=== PATIENT | male | born 1955 | race Two or more races ===

== ENCOUNTER 2017-02-04 12:53 | Outpatient (CLI) | payer MEDICARE, OTHER ==
[~2017-02-04 12:53] MED LIST: HYDROCHLOROTHIA25 MG ORAL; NORCO 10/3251 EA ORAL; OMEPRAZOLE40 M1 ORAL; PROSCAR5 MG ORAL; TAMSULOSIN HCL0.4 MG ORAL; ZOLPIDEM TARTRA10 MG ORAL
[2017-02-04 13:15] VITALS: BP 124/80
[2017-02-04] MEDS ORDERED: POTASSIUM CITR10 ME1 PO (13:22)
[2017-02-04] MEDS ORDERED: GLEEVEC100 MG ORAL (13:22)
--- NOTE | 2017-02-04 13:53 | GI Progress Note ---
Assessment/Plan Problems: (1) Colonic polyp ICD Codes: K63.5 - Polyp of colon SNOMED: 47008110 (2) Colon cancer ICD Codes: C18.9 - Malignant neoplasm of colon, unspecified SNOMED: 490487349 (3) abd GIST Status: stable, unchanged Status Narrative Seen with Dr. Starr. Assessment/Plan s/p colonoscopy >> colonic polyp 4cm in R cecum >> pathology, invasive adenocarcinoma colovesical fistula discussed POC with Dr. Gonsales ordered CT @ [facility] f/u with urology RTC after imaging study Subjective Subjective abdominal pain >> lower at pelvis moves around to back dysuria weight loss 6 lbs Objective Last 24 Hour Vital Signs Date Time Temp Pulse Resp B/P Pulse Ox O2 Delivery O2 Flow Rate FiO2 02/04/17 13:15 97.4 82 16 124/80 95 General Appearance: no apparent distress, alert Cardiovascular: normal rate Respiratory/Chest: normal breath sounds, no respiratory distress Abdominal Exam: normal bowel sounds, non tender, soft Extremities: normal range of motion Objective DATE OF OPERATION: 12/10/2015 PREOPERATIVE DIAGNOSES: 1. Gastrointestinal stromal tumor in the greater curvature of the stomach. 2. Adenocarcinoma of the right colon. POSTOPERATIVE DIAGNOSES: 1. Gastrointestinal stromal tumor of the stomach, stage IV. 2. Right colon adenocarcinoma. 3. Carcinomatosis PROCEDURES: 1. Diagnostic laparoscopy. 2. Laparoscopic peritoneal biopsies. SURGEON: Ajith Yi M.D. Endoscopy Procedure Note Indication for Procedure: colon polyp x 1 (4cm in cecum) Procedures Performed: colonoscopy Operative Findings/Diagnosis: same ROBERT STARR - Nov 23, 2015 09:31 Omayra Childers N.P. Feb 04, 2017 13:53
== END 2017-02-04 13:45 | disposition home or self-care (01) ==
LOC: PAN 12:53
DX: K63.5 Polyp of colon (principal); C18.9 Malignant neoplasm of colon, unspecified
CPT/HCPCS: 99211

== ENCOUNTER 2017-02-19 13:12 | Outpatient (CLI) | payer MEDICARE, OTHER ==
[~2017-02-19 13:12] MED LIST changes: +GLEEVEC100 MG ORAL; +POTASSIUM CITR10 ME1 PO
[2017-02-19 13:31] VITALS: BP 126/71
--- NOTE | 2017-02-19 14:17 | GI Progress Note ---
Assessment/Plan Problems: (1) Diverticulitis ICD Codes: K57.92 - Diverticulitis of intestine, part unspecified, without perforation or abscess without bleeding SNOMED: 196208169 (2) Colon cancer ICD Codes: C18.9 - Malignant neoplasm of colon, unspecified SNOMED: 057398870 (3) abd GIST Status: stable Status Narrative Seen with Dr. Hadley. Assessment/Plan CT AP reviewed >> diverticulitis rx Cipro + Flagyl recommended urology and surgical consult RTC x 1 month Subjective Gastrointestinal/Abdominal: Reports: no symptoms Subjective decrease in appetite Rt scrotum - small nodule Objective Last 24 Hour Vital Signs Date Time Temp Pulse Resp B/P Pulse Ox O2 Delivery O2 Flow Rate FiO2 02/19/17 13:31 97.9 74 16 126/71 General Appearance: no apparent distress, alert Cardiovascular: normal rate Respiratory/Chest: normal breath sounds, no respiratory distress Abdominal Exam: normal bowel sounds, non tender, soft Extremities: normal range of motion Omayra Childers N.P. Feb 19, 2017 14:17
== END 2017-02-19 13:51 | disposition home or self-care (01) ==
LOC: PAN 13:12
DX: K57.92 Diverticulitis of intestine, part unspecified, without perforation or abscess without bleeding (principal); C18.9 Malignant neoplasm of colon, unspecified
CPT/HCPCS: 99211

== ENCOUNTER 2017-03-30 13:08 | Outpatient (CLI) | payer MEDICARE, OTHER ==
--- NOTE | 2017-03-30 14:33 | GI Progress Note ---
Assessment/Plan Problems: (1) Colon cancer ICD Codes: C18.9 - Malignant neoplasm of colon, unspecified SNOMED: 050728919 (2) Diverticulitis ICD Codes: K57.92 - Diverticulitis of intestine, part unspecified, without perforation or abscess without bleeding SNOMED: 900940936 (3) Colonic polyp ICD Codes: K63.5 - Polyp of colon SNOMED: 20270509 Status: stable Status Narrative Seen with Dr. Hadley. Assessment/Plan hx of colon CA diverticulitis, s/p tx EGD/colonoscopy scheduled for 04/15/17. - CLD & [employer] prep instructions given and acknowledged. Subjective Gastrointestinal/Abdominal: Reports: no symptoms Objective T 98 BP 137/71 P 87 Denies weight loss General Appearance: no apparent distress, alert, overweight Cardiovascular: normal rate Respiratory/Chest: normal breath sounds, no respiratory distress Abdominal Exam: normal bowel sounds, non tender, soft Extremities: normal range of motion Omayra Childers N.P. Mar 30, 2017 14:33
== END 2017-03-30 13:45 | disposition home or self-care (01) ==
LOC: PAN 13:08
DX: K57.92 Diverticulitis of intestine, part unspecified, without perforation or abscess without bleeding (principal); K63.5 Polyp of colon; C18.9 Malignant neoplasm of colon, unspecified; E66.3 Overweight
CPT/HCPCS: 99211

== ENCOUNTER 2017-04-15 07:51 | Day surgery (SDC) | payer MEDICARE, MEDICAID ==
[2017-04-15] VITALS (10 sets, daily range): BP systolic 135–147; BP diastolic 70–83
[~2017-04-15] VITALS: Ht 162.6 cm; Wt 78.5 kg
[2017-04-15] MEDS ORDERED: DOCOLACE PO (08:30)
[2017-04-15] MEDS ORDERED: HYZAAR 100-251 EACH ORAL (08:31)
--- NOTE | 2017-04-15 08:48 | Pre-Procedure Note/Attestation ---
Pre-Procedure Note/Attestation Complete Prior to Procedure Planned Procedure: not applicable Procedure Narrative: esophagogastroduodenoscopy and colonoscopy Indications for Procedure Pre-Operative Diagnosis: screening colon, GERD Attestation I attest that I discussed the nature of the procedure; its benefits; risks and complications; and alternatives (and the risks and benefits of such alternatives ), prior to the procedure, with the patient (or the patient's legal medical center representative). I attest that, if there was a reasonable possibility of needing a blood transfusion, the patient (or the patient's legal medical center representative) was given the [facility] standardized written summary, pursuant to the Maninder Faison Blood Safety Act ([place] Health and Safety Code # 1645, as amended). I attest that I re-evaluated the patient just prior to the surgery and that there has been no change in the patient's H&P, except as documented below: ROBERT STARR Apr 15, 2017 08:48
--- NOTE | 2017-04-15 08:49 | Short Stay Surgery H&P ---
History of Present Illness History of Present Illness Chief Complaint see recent consult note HPI Royce Hartman is a 61 year old male who was admitted on for Colon Cancer,Gerd Patient History Allergies: Coded Allergies: No Known Allergies (Unverified , 04/15/17) PAST MEDICAL HISTORY: Past Surgeries: Social History: Medication History Scheduled Finasteride* (Proscar*), 5 MG ORAL DAILY, (Reported) Imatinib Mesylate (Gleevec), 600 MG ORAL DAILY, (Reported) Losartan/Hydrochlorothiazide 100-25 Tablet (Hyzaar 100-25 Tablet), 1 TAB ORAL DAILY, (Reported) [Docolace], 100 MG PO DAILY, (Reported) Scheduled PRN Zolpidem Tartrate* (Zolpidem Tartrate*), 10 MG ORAL BEDTIME PRN for Insomnia, ( Reported) Miscellaneous Medications Potassium Citrate (Potassium Citrate), 40 MEQ PO, (Reported) Discontinued Medications Hydrochlorothiazide* (Hydrochlorothiazide*), 25 MG ORAL DAILY, (Reported) Discontinued Reason: MD discontinued med Omeprazole (Omeprazole), 40 MG ORAL DAILY, (Reported) Discontinued Reason: MD discontinued med Physical Exam Vital Signs Last Vital Signs Date Time Temp Pulse Resp B/P (MAP) Pulse Ox O2 Delivery O2 Flow Rate FiO2 04/15/17 08:21 98.5 89 18 147/80 97 Room Air Plan Attestation Are the patient's medical conditions optimized for surgery? ROBERT STARR Apr 15, 2017 08:49
[2017-04-15] MEDS ORDERED: Lidocaine 1% MPF 10mg/ml 5ml ONE (09:50)
[2017-04-15] MEDS ORDERED: Propofol 200mg/20ml IV ONE (09:50)
--- NOTE | 2017-04-15 10:12 | Endoscopy Procedure Note ---
Endoscopy Procedure Note Indication for Procedure: gerd, screening colon, diverticulosis Procedures Performed: EGD, colonoscopy Operative Findings/Diagnosis: gastritis, diverticulosis Specimen: yes Pt Tolerated Procedure Well: Yes Estimated Blood Loss: none Anesthesiologist: fatou Anesthesia: MAC Implant(s) used?: No 50 yrs or older w/o bx or poly: Yes 10yrs. F/U not recommended: Yes If not recommended, why?: Above average risk 10 yrs. F/U needed: Yes 18 years or older w/prev. colo: No ROBERT STARR Apr 15, 2017 10:12
--- NOTE | 2017-04-15 10:13 | Anethesia Preoperative Eval ---
Anesthesia Pre-op PMH/ROS General Date of Evaluation: Apr 15, 2017 Time of Evaluation: 09:47 Anesthesiologist: fatou ASA Score: ASA 4 Mallampati Score Class I : Soft palate, uvula, fauces, pillars visible Class II: Soft palate, uvula, fauces visible Class III: Soft palate, base of uvula visible Class IV: Only hard plate visible Mallampati Classification: Class II Surgeon: eyad Diagnosis: colon screening, diverticulitis, cancer Surgical Procedure: egd/colonoscopy Anesthesia History: none Family History: no anesthesia problems Allergies: Coded Allergies: No Known Allergies (Unverified , 04/15/17) Medications: see eMAR Past Medical History Cardiovascular: Reports: HTN Gastrointestinal/Genitourinary: Reports: GERD, ESRD Anesthesia Pre-op Phys. Exam Physician Exam Last Vital Signs Date Time Temp Pulse Resp B/P (MAP) Pulse Ox O2 Delivery O2 Flow Rate FiO2 04/15/17 08:21 98.5 89 18 147/80 97 Room Air Constitutional: NAD Neurologic: CN 2-12 intact Cardiovascular: RRR Respiratory: CTA Gastrointestinal: S/NT/ND Airway Exam Mallampati Score: Class II MO: full Neck: supple TMD: 3fb ROM: full Teeth: intact Anesthesia Pre-op A/P Studies Pre-op Studies: EKG - nsr left anterior fasicular block Risk Assessment & Plan Assessment: asa4 Plan: mac Status Change Before Surgery: No Pre-Antibiotics Drug: na TK ERVIN Apr 15, 2017 10:13
[2017-04-15] MEDS ORDERED: Midazolam 2mg/2ml Inj IVP PRN (10:15)
[2017-04-15] MEDS ORDERED: DiphenhydrAMINE 50mg/ml Inj IVP PRN (10:15)
[2017-04-15] MEDS ORDERED: Atropine Inj 1mg/10ml Syr IV PRN (10:15)
[2017-04-15] MEDS ORDERED: Hydromorphone 0.5mg/0.5ml inj IVP PRN (10:15)
--- NOTE | 2017-04-15 10:34 | Immediate Post-Op Evaluation ---
Immediate Post-Op Evalulation Immediate Post-Op Evalulation Procedure: egd/colonocopy Date of Evaluation: Apr 15, 2017 Time of Evaluation: 10:34 IV Fluids: 0.9ns 300ml Blood Products: none Estimated Blood Loss: negligible Blood Pressure Systolic: 145 Blood Pressure Diastolic: 83 Pulse Rate: 79 Respiratory Rate: 18 O2 Sat by Pulse Oximetry: 99 Temperature (Fahrenheit): 97.8 Pain Score (1-10): 0 Nausea: No Vomiting: No Complications none Patient Status: awake, reacts, patent Hydration Status: adequate Drug: TK De La O Apr 15, 2017 10:34
--- NOTE | 2017-04-15 11:41 | 48 Hour Post Anesthesia Eval ---
Post Anesthesia Evaluation Procedure: egd/colonocopy Date of Evaluation: Apr 15, 2017 Time of Evaluation: 11:40 Blood Pressure Systolic: 145 0: 79 Pulse Rate: 65 Respiratory Rate: 18 Temperature (Fahrenheit): 98.5 O2 Sat by Pulse Oximetry: 100 Airway: patent Nausea: No Vomiting: No Pain Intensity: 0 Hydration Status: adequate Cardiopulmonary Status: stable Mental Status/LOC: patient returned to baseline Post-Anesthesia Complications: none Follow-up care needed: N/A TK ERVIN Apr 15, 2017 11:41
--- NOTE | 2017-04-15 23:15 | Procedure Note ---
DATE OF PROCEDURE: 04/15/2017 SURGEON: Walter Hadley M.D. PROCEDURE: Upper endoscopy with biopsy and colonoscopy with biopsy. ANESTHESIOLOGIST: Yessica Nichols M.D. INSTRUMENT: Olympus adult flexible upper endoscope and colonoscope. Indication: Screening colonoscopy evaluation, history of diverticulitis, gastritis, and GERD. Reason for Procedure: The procedure, risks, benefits, and possible consequences, including hemorrhage, aspiration, perforation and infection, and alternative treatments, were explained to the patient/legal guardian by Dr. Walter Hadley and the patient/legal guardian understood and accepted these risks. Description of Procedure: After informed consent was obtained and the patient was adequately sedated, the Olympus upper endoscope was advanced from mouth into the second portion of duodenum and retroflexion was performed in the stomach. The patient had evidence of irregular Z-line, mildly incompetent lower esophageal sphincter with some irregularity and inflammation at the GE junction without any obvious ulceration. In the stomach, there was diffuse gastritis. Random biopsies from antrum and body was obtained to rule out H. pylori infection. The patient also with a gastric nodule around the lesser curvature few centimeter below the Z-line. This lesion most probably submucosal. Biopsy from this lesion was obtained. This lesion roughly measured about 6 to 7 mm. At this time, the upper endoscope was retrieved and the patient was turned over for colonoscopy. First, a rectal exam was performed, which was positive for external and internal hemorrhoids. Then, the scope was advanced from the rectum into the cecum documented by appendiceal orifice, ileocecal valve, and upper quadrant palpation. Quality of prep was very good. The patient had significant diverticulosis measured at about 35 cm from the incisors with some inflammatory changes around the diverticulitis suggestive of diverticulitis and colitis, which was biopsied. No active bleeding at this time. No obvious polyp was seen. The patient also had some scattered diverticula in the right colon. The retroflexion of the rectum showed evidence of medium-sized nonbleeding internal hemorrhoids. The patient might have a prior colorectal surgery close to the anus. SUMMARY OF FINDINGS: 1. Incompetent lower esophageal sphincter with irregularity at the Z-line without any obvious esophagitis. 2. Diffuse gastritis, status post biopsy. 3. Gastric submucosal lesion, see above for details. 4. Diverticulosis. 5. Diverticulitis, colitis. 6. Internal and external hemorrhoids. RECOMMENDATIONS: 1. Follow up biopsies and treat accordingly. 2. The patient might need EUS for submucosal lesion. We will follow up with biopsy and make the decision. I want to thank, Dr. Mango Gonsales, for this kind referral. Walter Hadley M.D. DR: NICKI JOB#: [id number] CC: Mango Gonsales M.D.; Fax#: [phone]
--- NOTE | 2017-04-20 19:11 | Cardiology Report ---
APPROVED REPORT EKG Measurement Heart [id number] Normal sinus rhythm Pulmonary disease pattern Left anterior fascicular block Abnormal ECG
== END 2017-04-15 12:20 | disposition home or self-care (01) ==
LOC: GAS 07:51
DX: Z12.11 Encounter for screening for malignant neoplasm of colon (principal); K29.50 Unspecified chronic gastritis without bleeding; K21.9 Gastro-esophageal reflux disease without esophagitis; K64.4 Residual hemorrhoidal skin tags; K64.8 Other hemorrhoids; K22.0 Achalasia of cardia; I12.0 Hypertensive chronic kidney disease with stage 5 chronic kidney disease or end stage renal disease; N18.6 End stage renal disease; I44.4 Left anterior fascicular block; K57.30 Diverticulosis of large intestine without perforation or abscess without bleeding; K57.32 Diverticulitis of large intestine without perforation or abscess without bleeding; K52.9 Noninfective gastroenteritis and colitis, unspecified
CPT/HCPCS: 43239; 45380; 93005; J2704; 94003; 94150

== ENCOUNTER 2017-07-23 13:01 | Outpatient (CLI) | payer MEDICARE, MEDICAID ==
[~2017-07-23 13:01] MED LIST changes: +DOCOLACE PO; +HYZAAR 100-251 EACH ORAL
[2017-07-23] MEDS ORDERED: ABX (13:25)
[2017-07-23 13:28] VITALS: BP 146/77
--- NOTE | 2017-07-23 14:31 | GI Progress Note ---
Assessment/Plan Problems: (1) Colon cancer ICD Codes: C18.9 - Malignant neoplasm of colon, unspecified SNOMED: 486347074 (2) Diverticulitis ICD Codes: K57.92 - Diverticulitis of intestine, part unspecified, without perforation or abscess without bleeding SNOMED: 328460656 (3) Colonic polyp ICD Codes: K63.5 - Polyp of colon SNOMED: 13165460 (4) abd GIST Status: stable Status Narrative Seen with Dr. Hadley. Assessment/Plan s/p EGD/colonoscopy SUMMARY OF FINDINGS: 1. Incompetent lower esophageal sphincter with irregularity at the Z-line without any obvious esophagitis. 2. Diffuse gastritis, status post biopsy. 3. Gastric submucosal lesion, see above for details. 4. Diverticulosis. 5. Diverticulitis, colitis. 6. Internal and external hemorrhoids. recent diverticulitis inpatient at [facility] RECOMMENDATIONS: defer EUS for submucosal lesion at this time, pt scheduled for surgery next month. cont current plan of care RTC x 1 month Subjective Gastrointestinal/Abdominal: Reports: abdominal pain Subjective held Gleevec Objective Last 24 Hour Vital Signs Date Time Temp Pulse Resp B/P (MAP) Pulse Ox O2 Delivery O2 Flow Rate FiO2 07/23/17 13:28 98.0 72 16 146/77 98 General Appearance: WD/WN, no apparent distress, alert Cardiovascular: normal rate Respiratory/Chest: normal breath sounds, no respiratory distress Abdominal Exam: normal bowel sounds, non tender, soft Extremities: normal range of motion, non-tender Omayra Childers N.P. Jul 23, 2017 14:31
== END 2017-07-23 13:35 | disposition home or self-care (01) ==
LOC: PAN 13:01
DX: K57.92 Diverticulitis of intestine, part unspecified, without perforation or abscess without bleeding (principal); C18.9 Malignant neoplasm of colon, unspecified; K63.5 Polyp of colon; K29.70 Gastritis, unspecified, without bleeding; K64.8 Other hemorrhoids; K64.4 Residual hemorrhoidal skin tags
CPT/HCPCS: 99211

== ENCOUNTER 2017-09-14 13:24 | Outpatient (CLI) | payer MEDICARE, MEDICAID ==
[~2017-09-14 13:24] MED LIST changes: +ABX
--- NOTE | 2017-09-14 14:15 | GI Progress Note ---
Assessment/Plan Problems: (1) Colostomy in place ICD Codes: Z93.3 - Colostomy status SNOMED: 990582261, 027005094 (2) abd GIST (3) Colon cancer ICD Codes: C18.9 - Malignant neoplasm of colon, unspecified SNOMED: 507354400 (4) Diverticulitis ICD Codes: K57.92 - Diverticulitis of intestine, part unspecified, without perforation or abscess without bleeding SNOMED: 965264423 (5) Colonic polyp ICD Codes: K63.5 - Polyp of colon SNOMED: 74893055 Status: stable Status Narrative Discussed with Dr. Hadley. Assessment/Plan s/p EGD/colonoscopy SUMMARY OF FINDINGS: 1. Incompetent lower esophageal sphincter with irregularity at the Z-line without any obvious esophagitis. 2. Diffuse gastritis, status post biopsy. 3. Gastric submucosal lesion, see above for details. 4. Diverticulosis. 5. Diverticulitis, colitis. 6. Internal and external hemorrhoids. recent diverticulitis inpatient at [facility] RECOMMENDATIONS: s/p resection with colostomy placement hydrocortisone topical to affected area RTC x 3 months Subjective Subjective no symptoms had colostomy placement last month c/o of itching / redness around the colostomy site Objective T 98.3 BP 128/72 P 86 96 RA General Appearance: WD/WN, no apparent distress, alert Cardiovascular: normal rate Respiratory/Chest: normal breath sounds, no respiratory distress Abdominal Exam: normal bowel sounds, non tender, soft, other - colostomy >> soft brown stool Extremities: normal range of motion, non-tender Omayra Childers N.P. Sep 14, 2017 14:15
== END 2017-09-14 13:59 | disposition home or self-care (01) ==
LOC: PAN 13:24
DX: C18.9 Malignant neoplasm of colon, unspecified (principal); K57.92 Diverticulitis of intestine, part unspecified, without perforation or abscess without bleeding; K63.5 Polyp of colon; Z93.3 Colostomy status; K64.8 Other hemorrhoids; K64.4 Residual hemorrhoidal skin tags
CPT/HCPCS: 99212

== ENCOUNTER 2019-09-01 13:47 | Outpatient (CLI) | payer MEDICARE, MEDICAID ==
--- NOTE | 2019-09-01 14:20 | General Progress Note ---
Assessment/Plan Assessment/Plan: (1) Colostomy in place ICD Codes: Z93.3 - Colostomy status SNOMED: 067730952, 718158712 (2) abd GIST (3) Colon cancer ICD Codes: C18.9 - Malignant neoplasm of colon, unspecified SNOMED: 813088722 (4) Diverticulitis ICD Codes: K57.92 - Diverticulitis of intestine, part unspecified, without perforation or abscess without bleeding SNOMED: 665314875 (5) Colonic polyp ICD Codes: K63.5 - Polyp of colon SNOMED: 86233641 Status: stable Status Narrative Discussed with Dr. Hadley. Assessment/Plan s/p EGD/colonoscopy SUMMARY OF FINDINGS: 1. Incompetent lower esophageal sphincter with irregularity at the Z-line without any obvious esophagitis. 2. Diffuse gastritis, status post biopsy. 3. Gastric submucosal lesion, see above for details. 4. Diverticulosis. 5. Diverticulitis, colitis. 6. Internal and external hemorrhoids. recent diverticulitis inpatient at [facility] plan EGD and colonoscopy Subjective ROS Limited/Unobtainable: Yes Allergies: Coded Allergies: No Known Allergies (Unverified , 04/15/17) Objective General Appearance: alert EENT: normal ENT inspection Neck: supple Cardiovascular: normal rate Respiratory/Chest: decreased breath sounds Abdomen: normal bowel sounds, non tender, soft Extremities: non-tender Walter Hadley MD Sep 01, 2019 14:20
[2019-09-01] MEDS ORDERED: GLEEVEC400 MG ORAL (15:50)
[2019-09-01] MEDS ORDERED: OXYCODONE HCL20 M1 ORAL (15:50)
[2019-09-01] MEDS ORDERED: LOSARTAN-HCTZ1 EAC2 ORAL (15:50)
[2019-09-01 15:51] VITALS: BP 141/75
== END 2019-09-01 15:47 | disposition home or self-care (01) ==
LOC: PAN 13:47
DX: K63.5 Polyp of colon (principal); K57.92 Diverticulitis of intestine, part unspecified, without perforation or abscess without bleeding; C18.9 Malignant neoplasm of colon, unspecified; Z93.3 Colostomy status; K31.9 Disease of stomach and duodenum, unspecified; K64.8 Other hemorrhoids; K64.4 Residual hemorrhoidal skin tags
CPT/HCPCS: 99212

== ENCOUNTER 2019-09-09 09:35 | Day surgery (SDC) | payer MEDICARE, MEDICAID ==
[~2019-09-09] VITALS: Ht 162.6 cm; Wt 90.7 kg
[2019-09-09] VITALS (9 sets, daily range): BP systolic 103–123; BP diastolic 69–78
--- NOTE | 2019-09-09 08:02 | Anethesia Preoperative Eval ---
Anesthesia Pre-op PMH/ROS General Date of Evaluation: Sep 09, 2019 Time of Evaluation: 07:56 Anesthesiologist: fatou ASA Score: ASA 4 Mallampati Score Class I : Soft palate, uvula, fauces, pillars visible Class II: Soft palate, uvula, fauces visible Class III: Soft palate, base of uvula visible Class IV: Only hard plate visible Mallampati Classification: Class II Surgeon: eyad Diagnosis: gerd, colonic polyps Surgical Procedure: egd, colonoscopy Anesthesia History: none Family History: no anesthesia problems Allergies: Coded Allergies: No Known Allergies (Unverified , 09/09/19) Medications: see eMAR Patient NPO?: Yes Past Medical History Cardiovascular: Reports: HTN Gastrointestinal/Genitourinary: Reports: GERD, other - kidney stones, dialysis , hemorrhoids, diverticulosis, abdominal gist, stomach cancer, colostomy Neurologic/Psychiatric: Reports: other HEENT: Reports: MODOC (L), other - decreased visual acuity Musculoskeletal/Integumentary: Reports: other - left tka PSxH Narrative: left tka, cholecystectomy, exp lap, Anesthesia Pre-op Phys. Exam Physician Exam Last Vital Signs Date Time Temp Pulse Resp B/P (MAP) Pulse Ox O2 Delivery O2 Flow Rate FiO2 09/09/19 10:44 Room Air 09/09/19 10:18 97.4 93 18 123/75 98 Constitutional: NAD Neurologic: other - facial paralysis Cardiovascular: RRR Respiratory: CTA Gastrointestinal: S/NT/ND Airway Exam Mallampati Score: Class II MO: limited Neck: short TMD: 2fb ROM: limited Anesthesia Pre-op A/P Risk Assessment & Plan Assessment: asa4 Plan: mac Status Change Before Surgery: No Pre-Antibiotics Drug: Yessica Edward MD Sep 09, 2019 08:02
[~2019-09-09 09:35] MED LIST changes: +Atropine Inj 1mg/10ml Syr IV PRN; +DiphenhydrAMINE 50mg/ml Inj IVP PRN; +GLEEVEC400 MG ORAL; +LOSARTAN-HCTZ1 EAC2 ORAL; +LR 1000ml 1,000 ML IVLG SCH; +Midazolam 2mg/2ml Inj IVP PRN; +OXYCODONE HCL20 M1 ORAL; +fentaNYL 100 mcg/2 mL IV PRN
[2019-09-09] MEDS ORDERED: Lidocaine 1% MPF 10mg/ml 5ml ONE (11:00)
[2019-09-09] MEDS ORDERED: Propofol 200mg/20ml IV ONE (11:00)
[2019-09-09] MEDS ORDERED: LR 1000ml ONE (11:00)
--- NOTE | 2019-09-09 11:03 | Pre-Procedure Note/Attestation ---
Pre-Procedure Note/Attestation Complete Prior to Procedure Planned Procedure: not applicable Procedure Narrative: esophagogastroduodenoscopy and colonoscopy Indications for Procedure Pre-Operative Diagnosis: screening colon Attestation I attest that I discussed the nature of the procedure; its benefits; risks and complications; and alternatives (and the risks and benefits of such alternatives ), prior to the procedure, with the patient (or the patient's legal sales representative wire rope). I attest that, if there was a reasonable possibility of needing a blood transfusion, the patient (or the patient's legal sales representative wire rope) was given the [facility] Services standardized written summary, pursuant to the Maninder [place] Blood Safety Act ([place] Health and Safety Code # 1645, as amended). I attest that I re-evaluated the patient just prior to the surgery and that there has been no change in the patient's H&P, except as documented below: Walter Hadley MD Sep 09, 2019 11:03
--- NOTE | 2019-09-09 11:04 | Short Stay Surgery H&P ---
History of Present Illness History of Present Illness Chief Complaint see recent office note HPI Royce Hartman is a 64 year old male who was admitted on for Cancer,Gerd Patient History Allergies: Coded Allergies: No Known Allergies (Unverified , 09/09/19) Medication History Scheduled Imatinib Mesylate (Gleevec), 400 MG ORAL DAILY, (Reported) Losartan/Hydrochlorothiazide (Losartan-Hctz 50-12.5 Mg Tab), 1 TAB ORAL DAILY, ( Reported) Scheduled PRN Oxycodone Hcl (Oxycodone Hcl), 10 MG ORAL Q6H PRN for For Pain, (Reported) Zolpidem Tartrate* (Zolpidem Tartrate*), 10 MG ORAL BEDTIME PRN for Insomnia, ( Reported) Physical Exam Vital Signs Last Vital Signs Date Time Temp Pulse Resp B/P (MAP) Pulse Ox O2 Delivery O2 Flow Rate FiO2 09/09/19 10:44 Room Air 09/09/19 10:18 97.4 93 18 123/75 98 Plan Attestation Are the patient's medical conditions optimized for surgery? Walter Hadley MD Sep 09, 2019 11:04
--- NOTE | 2019-09-09 12:33 | Immediate Post-Op Evaluation ---
Immediate Post-Op Evalulation Immediate Post-Op Evalulation Procedure: egd/colonoscopy w/bx Date of Evaluation: Sep 09, 2019 Time of Evaluation: 11:42 IV Fluids: 100ml lr Blood Products: none Estimated Blood Loss: negligible Blood Pressure Systolic: 103 Blood Pressure Diastolic: 74 Pulse Rate: 89 Respiratory Rate: 18 O2 Sat by Pulse Oximetry: 99 Temperature (Fahrenheit): 97.6 Pain Score (1-10): 0 Nausea: No Vomiting: No Complications none Patient Status: awake, reacts, patent Hydration Status: adequate Drug: Yessica Edward MD Sep 09, 2019 12:33
--- NOTE | 2019-09-09 12:34 | 48 Hour Post Anesthesia Eval ---
Post Anesthesia Evaluation Procedure: egd/colonoscopy w/bx Date of Evaluation: Sep 09, 2019 Time of Evaluation: 11:44 Blood Pressure Systolic: 116 0: 71 Pulse Rate: 82 Respiratory Rate: 18 Temperature (Fahrenheit): 97.6 O2 Sat by Pulse Oximetry: 99 Airway: patent Nausea: No Vomiting: No Pain Intensity: 0 Hydration Status: adequate Cardiopulmonary Status: stable Mental Status/LOC: patient returned to baseline Post-Anesthesia Complications: none Follow-up care needed: N/A Yessica Orr MD Sep 09, 2019 12:34
--- NOTE | 2019-09-09 16:00 | Procedure Note ---
DATE OF PROCEDURE: 09/09/2019 SURGEON: Walter Hadley M.D. PROCEDURE: Upper endoscopy with biopsy and colonoscopy. ANESTHESIA: Per Dr. Nichols. INSTRUMENT: Olympus adult flexible upper endoscope and colonoscope. INDICATIONS: Screening colonoscopy evaluation, chronic GERD, history of GIST. REASON FOR PROCEDURE: The procedure, risks, benefits, and possible consequences, including hemorrhage, aspiration, perforation and infection, and alternative treatments, were explained to the patient/legal guardian by Dr. Walter Hadley and the patient/legal guardian understood and accepted these risks. DESCRIPTION OF PROCEDURE: After informed consent was obtained and the patient was adequately sedated, Olympus upper endoscope was advanced from mouth into the second portion of duodenum and retroflexion was performed in the stomach. The patient has evidence of diffuse gastritis. Random biopsy from antrum was obtained to rule out H. pylori infection. The patient has polyp in the proximal body of the stomach suspicious for either submucosa possibly a GIST given prior history of GIST. Multiple biopsies from this polyp were obtained. This polyp measured roughly about 6 to 7 mm. At this time, the upper endoscope was retrieved and the patient was turned over for colonoscopy. First, rectal exam was performed, which was normal. Then, the scope was advanced from the rectum into the cecum documented by appendiceal orifice, ileocecal valve, and right upper quadrant palpation. Then, the scope was advanced to the terminal ileum. Quality of prep was very good. The patient had diverticulosis throughout the colon. There is a scar from prior surgery in the sigmoid colon at around 25 cm from the anal verge. No obvious recurrent mass, polyp, or any other pathology was seen. Retroflexion of rectum showed evidence of internal hemorrhoids. SUMMARY OF FINDINGS: 1. Gastritis, status post biopsy. 2. Gastric polyp suspicious for recurrent GIST, status post biopsy. 3. Diverticulosis. 4. Internal hemorrhoids. 5. Prior history of colonic surgery and anastomosis in the sigmoid. RECOMMENDATIONS: Follow pathology and treat accordingly. The patient is to call office for further followup. I want to thank, Dr. Mango Gonsales, for this kind referral. Walter Hadley M.D. DR: DAVID JOB#: [id number] CC: Mango Gonsales M.D.; Fax#: [phone]
--- NOTE | 2019-09-12 12:21 | Endoscopy Procedure Note ---
Endoscopy Procedure Note General Indication for Procedure: screening, GERD Procedures Performed: EGD, colonoscopy Operative Findings/Diagnosis: gastritis,diverticulosis Specimen: yes Pt Tolerated Procedure Well: Yes Estimated Blood Loss: none Anesthesia Anesthesiologist: russ trujillo Anesthesia: MAC Inserted Devices Implant(s) used?: No Quality Quality of Bowel Preparation: Good Did scope reach the cecum?: Yes Was there any complications?: No GI Core Measures 50 yrs or older w/o bx or poly: No 10yrs. F/U recommended: Yes If not recommended, why?: Above average risk 18 years or older w/prev. colo: Yes <3yrs. since last colonoscopy: No Walter Hadley MD Sep 12, 2019 12:21
--- NOTE | 2019-11-09 10:39 | Short Stay Surgery H&P ---
History of Present Illness History of Present Illness Chief Complaint GERD, h/o of cancer HPI Royce Hartman is a 64 year old male who was admitted on for Cancer,Gerd Patient History Allergies: Coded Allergies: No Known Allergies (Unverified , 09/09/19) Medication History Scheduled Imatinib Mesylate (Gleevec), 400 MG ORAL DAILY, (Reported) Losartan/Hydrochlorothiazide (Losartan-Hctz 50-12.5 Mg Tab), 1 TAB ORAL DAILY, ( Reported) Scheduled PRN Oxycodone Hcl (Oxycodone Hcl), 10 MG ORAL Q6H PRN for For Pain, (Reported) Zolpidem Tartrate* (Zolpidem Tartrate*), 10 MG ORAL BEDTIME PRN for Insomnia, ( Reported) Review of Systems Cardiovascular: Reports: no symptoms Skeletal: Reports: no symptoms Gastrointestinal: Reports: gastro esophageal reflux disease Genitourinary: Reports: no symptoms Neurologic: Reports: no symptoms Endocrine: Reports: no symptoms Hematologic: Reports: anemia Physical Exam Skin: normal HENT: normal Heart: normal Lungs: normal Abdomen: normal Extremities: normal Plan Plan of Care EGD and colonoscopy Attestation Are the patient's medical conditions optimized for surgery? Attestation Response: yes Walter Hadley MD Nov 09, 2019 10:38
== END 2019-09-09 13:20 | disposition home or self-care (01) ==
LOC: GAS 09:35
DX: Z12.11 Encounter for screening for malignant neoplasm of colon (principal); K21.9 Gastro-esophageal reflux disease without esophagitis; K31.7 Polyp of stomach and duodenum; K57.90 Diverticulosis of intestine, part unspecified, without perforation or abscess without bleeding; K64.8 Other hemorrhoids; I10 Essential (primary) hypertension; Z85.028 Personal history of other malignant neoplasm of stomach; Z87.442 Personal history of urinary calculi; K29.50 Unspecified chronic gastritis without bleeding; Z90.49 Acquired absence of other specified parts of digestive tract; G83.9 Paralytic syndrome, unspecified
CPT/HCPCS: 43239; 93005; G0121; J2704; J7120; 94003; 94150

== ENCOUNTER 2019-09-22 12:57 | Outpatient (CLI) | payer MEDICARE, MEDICAID ==
[~2019-09-22 12:57] MED LIST changes: -Atropine Inj 1mg/10ml Syr IV PRN; -DiphenhydrAMINE 50mg/ml Inj IVP PRN; -LR 1000ml 1,000 ML IVLG SCH; -Midazolam 2mg/2ml Inj IVP PRN; -fentaNYL 100 mcg/2 mL IV PRN
--- NOTE | 2019-09-22 13:43 | General Progress Note ---
Assessment/Plan Problem List: (1) abd GIST (2) Colostomy in place ICD Codes: Z93.3 - Colostomy status SNOMED: 365163384, 841871574 (3) Colon cancer ICD Codes: C18.9 - Malignant neoplasm of colon, unspecified SNOMED: 475736551 (4) Diverticulitis ICD Codes: K57.92 - Diverticulitis of intestine, part unspecified, without perforation or abscess without bleeding SNOMED: 731520938 (5) Colonic polyp ICD Codes: K63.5 - Polyp of colon SNOMED: 49140292 Assessment/Plan: SUMMARY OF FINDINGS: 1. Gastritis, status post biopsy. 2. Gastric polyp suspicious for recurrent GIST, status post biopsy. 3. Diverticulosis. 4. Internal hemorrhoids. 5. Prior history of colonic surgery and anastomosis in the sigmoid. RTC 3 months Subjective ROS Limited/Unobtainable: Yes Allergies: Coded Allergies: No Known Allergies (Unverified , 09/09/19) Objective General Appearance: alert EENT: normal ENT inspection Neck: supple Cardiovascular: normal rate Respiratory/Chest: lungs clear Abdomen: normal bowel sounds, non tender, soft Extremities: non-tender Walter Hadley MD Sep 22, 2019 13:43
== END 2019-09-22 14:57 | disposition home or self-care (01) ==
LOC: PAN 12:57
DX: C18.9 Malignant neoplasm of colon, unspecified (principal); Z93.3 Colostomy status; K63.5 Polyp of colon; K57.92 Diverticulitis of intestine, part unspecified, without perforation or abscess without bleeding; K64.8 Other hemorrhoids
CPT/HCPCS: 99212